=== PATIENT | female | born 1940 | race Caucasian/White ===

== ENCOUNTER 2019-01-23 13:10 | Emergency (ER) | payer MEDICAID ==
[2019-01-23] MEDS: DICYCLOMINE 10 MG CAP PO (18:52)
[2019-01-23] MEDS: morphine 4 MG/ML VIAL IV (18:53)
[2019-01-23] MEDS: SOD CHLORIDE 0.9% 1,000 ML IV ×2 (18:53→20:19)
[2019-01-23] MEDS: ONDANSETRON 4 MG INJ IV ×2 (18:53→20:19)
[2019-01-23] MEDS: FAMOTIDINE 20 MG INJ IV (18:53)
[2019-01-23 18:54] LABS: ADD MAN DIFF? NO
[2019-01-23 18:59] LABS: BASOPHILS % 0.5 % (0.0-2.0); EOSINOPHILS % 0.2 % (0.0-7.0); HEMATOCRIT 44.2 % (37.0-47.0); HEMOGLOBIN 14.3 g/dl (12.0-16.0); LYMPHOCYTES # 2.9 10^3/ul (0.8-2.9); LYMPHOCYTES % 32.8 % (15.0-51.0); MEAN CORPUSCULAR HEMOGLOBIN 28.4 pg (29.0-33.0); MEAN CORPUSCULAR HGB CONC 32.4 g/dl (32.0-37.0); MEAN CORPUSCULAR VOLUME 87.7 fl (82.0-101.0); MEAN PLATELET VOLUME 10.4 fl (7.4-10.4); MONOCYTE # 0.5 10^3/ul (0.3-0.9); MONOCYTES % 5.4 % (0.0-11.0); NEUTROPHIL # 5.3 10^3/ul (1.6-7.5); NEUTROPHILS % 60.8 % (39.0-77.0); PLATELET COUNT 199 10^3/UL (140-415); RED BLOOD COUNT 5.04 10^6/ul (4.20-5.40)
[2019-01-23 18:59] LABS: WHITE BLOOD COUNT 8.7 10^3/ul (4.8-10.8)
[2019-01-23 19:13] LABS: INR 0.99; PROTIME 13.2 Sec (11.9-14.9)
[2019-01-23 19:17] LABS: ALANINE AMINOTRANSFERASE 23 IU/L (13-69); ALBUMIN 4.5 g/dl (3.3-4.9); ALBUMIN/GLOBULIN RATIO 1.25; ALKALINE PHOSPHATASE 67 IU/L (42-121); ANION GAP 11 (5-13); ASPARTATE AMINO TRANSFERASE 29 IU/L (15-46); BLOOD UREA NITROGEN 13 mg/dl (7-20); CALCIUM 9.7 mg/dl (8.4-10.2); CARBON DIOXIDE 26 mmol/L (21-31); CHLORIDE 109 mmol/L (97-110); CREATININE 0.61 mg/dl (0.44-1.00); GLUCOSE 105 mg/dl (70-220); LIPASE 47 U/L (23-300); POTASSIUM 4.2 mmol/L (3.5-5.1); SODIUM 146 mmol/L (135-144); TOTAL PROTEIN 8.1 g/dl (6.1-8.1)
[2019-01-23 19:29] LABS: TROPONIN-I < 0.012 ng/ml (0.000-0.120)
== END 2019-01-23 22:02 | disposition home or self-care (01) ==
LOC: E/R 22:02
DX: R10.2 Pelvic and perineal pain (principal); R19.7 Diarrhea, unspecified
CPT/HCPCS: 36415; 74176; 80053; 83690; 84484; 85025; 85610; 93005; 96374; 96375; 99285-25